=== PATIENT | female | born 1965 | race Two or more races ===

== ENCOUNTER 2019-09-12 14:42 | Inpatient (IN) | payer MEDICAID, OTHER ==
[~2019-09-12] VITALS: Ht 165.1 cm; Wt 132.4 kg
[2019-09-12 16:04] LABS: Alanine Aminotransferase 21 U/L (13-56); Albumin 2.8 g/dL (3.4-5.0); Anion Gap 4 (5-15); Aspartate Aminotransferase 16 U/L (15-37); BUN/Creatinine Ratio 13.2; Blood Urea Nitrogen 10 mg/dL (7-18); Carbon Dioxide 24 mmol/L (21-32); Chloride 108 mmol/L (98-107); GFR African American 103 mL/min; GFR Non-African American 85 mL/min; Glucose 102 mg/dL (74-106); Potassium 4.8 mmol/L (3.5-5.1); Sodium 136 mmol/L (136-145)
[2019-09-12 16:09] LABS: Alkaline Phosphatase 94 U/L (45-117); Bilirubin, Total 0.5 mg/dL (0.2-1.0); Total Protein 5.9 g/dL (6.4-8.2)
[2019-09-12 16:19] LABS: Urine Bacteria NONE SEEN /hpf (None Seen); Urine Blood Negative /uL (Negative); Urine Specific Gravity 1.021 (1.001-1.035); Urine WBC 1 /hpf (0 - 5)
[2019-09-12 17:24] LABS: Basophils # (auto) 0.1 10 ^3/uL (0-0.2); Basophils % (auto) 1.1 % (0.0-2.0); Eosinophils # (auto) 0.1 10 ^3/uL (0-0.8); Eosinophils % (auto) 0.8 % (0.0-7.0); Hematocrit 43.9 % (36.0-46.0); Lymphocytes # (auto) 2.9 10 ^3/uL (0.4-5.4); Lymphocytes % (auto) 28.9 % (10.0-50.0); Mean Corpuscular Hemoglobin 31.4 pg (28.0-32.0); Mean Corpuscular Hgb Conc. 34.2 g/dL (32.0-36.0); Mean Corpuscular Volume 91.8 fL (80.0-100.0); Monocytes # (auto) 0.8 10 ^3/uL (0-1.3); Monocytes % (auto) 7.6 % (0.0-12.0); Neutrophils # (auto) 6.1 10 ^3/uL (1.6-8.6); Neutrophils % (auto) 61.6 % (37.0-80.0); Nucleated Red Blood Cells % 0.1 %; Platelet Count (auto) 203 10^3/uL (140-450); Red Blood Cells 4.79 10^6/uL (4.0-5.20); Red Cell Distribution Width 15.2 % (11.8-14.3)
[2019-09-12] MEDS ORDERED: METO25TA93 PO (17:55)
[2019-09-12] MEDS ORDERED: PREG50CA PO (17:55)
[2019-09-12] MEDS ORDERED: OMEP20TA PO (17:55)
[2019-09-12] MEDS ORDERED: LAMO100T44 PO (17:55)
[2019-09-12] MEDS ORDERED: BUSP15TA60 PO (17:55)
[2019-09-12] MEDS ORDERED: ALBUAER3 IN (17:55)
[2019-09-12] MEDS ORDERED: AMOX-277 PO (17:55)
[2019-09-12] MEDS ORDERED: OXYB5SYP4 PO (17:55)
[2019-09-12] MEDS ORDERED: ATOR40TA52 PO (17:55)
[2019-09-12] MEDS ORDERED: FLUT110A INH (17:55)
[2019-09-12] MEDS ORDERED: ASPI-231 PO (17:55)
[2019-09-12] MEDS ORDERED: DIPH2.5T73 PO (17:55)
[2019-09-12] MEDS ORDERED: LORA-622 PO (17:55)
[2019-09-12] MEDS ORDERED: ZIPR80CA8 PO (17:55)
[2019-09-12] MEDS ORDERED: METF-372 PO (17:55)
[2019-09-12] MEDS ORDERED: SERT-160 PO (17:55)
[2019-09-12] MEDS ORDERED: NITROGLYCERIN 0.4 MG SL TAB SL PRN (19:00)
[2019-09-12] MEDS ORDERED: ACETAMINOPHEN 500 MG TAB PO PRN (19:00)
[2019-09-12] MEDS ORDERED: MORPHINE SULF INJ 2 MG/ML SYRINGE 1ML IV PRN (19:00)
[2019-09-12] MEDS ORDERED: DEXTROSE (50%) 50ML SYRG IV PRN (19:00)
[2019-09-12 19:33] LABS: CRP High Sensitivity 8.14 mg/dL (< 0.3)
[2019-09-12 19:50] VITALS: BP 119/60
--- NOTE | 2019-09-12 19:50 | NUR ---
Telemetry admit from ER SUJATHA ROMO admitted to Telemetry unit. Patient oriented to CHAY ROWE, primary RN, unit, room, bed, and unit policies regarding patient care and visiting hours. Patient now on continuous telemetry monitoring, tele box # 2 and telemetry reading on arrival to unit is sinus rhythm with heart rate at 71. Patient is alert and oriented x4. Patient denies shortness of breath or chest pain at this time. Patient is complaining of pain to her neck and bilateral arms (pain scale 6/10), notified patient that she does not have any PRN pain medications ordered at this time but this RN will page and notify hospitalist, patient verbalized understanding. Patient is on 2L NC, SPO2: 97%. No signs/symptoms of distress noted or verbalized at this time. Instructed on plan of care and to call for assistance as needed, patient verbalized understanding. Bed is locked in lowest position, side rails x 2 are up, call light is within reach, and bed alarm is on.
--- NOTE | 2019-09-12 20:27 | NUR ---
Spoke with Hospitalist RE: Pain Medication Notified Dr. Amor that patient is complaining of pain to her neck and bilateral arms (pain scale 6/10). Orders received, verified, and repeated (see EMR). Will carry out orders as received.
[2019-09-12] MEDS ORDERED: OXYCODONE W/ ACETAMINOPHEN 5/325MG TABLET PO PRN (20:30)
--- NOTE | 2019-09-12 21:00 | NUR ---
Incentive Spirometer Incentive spirometer at the bedside. Educated patient on how and how often to use the incentive spirometer, patient verbalized understanding and returned demonstration. Patient was able to raise marker to 1000ml, patient tolerated well.
[2019-09-12 21:04] LABS: Urine WBC None Seen /hpf (0 - 5)
--- NOTE | 2019-09-12 21:08 | NUR ---
Urine collected and sent to lab.
[2019-09-12] MEDS: ALBUTEROL SULF HFA 90MCG INH 200DOSE IN SCH (21:17)
[2019-09-12 21:18] LABS: Urine Bacteria NONE SEEN /hpf (None Seen); Urine Blood Negative /uL (Negative); Urine Specific Gravity 1.013 (1.001-1.035)
[2019-09-12] MEDS: ACCU-CHEK COMFORT CURVE STRIP VI SCH (21:18)
[2019-09-12] MEDS: InsuLIN REG 1unit/0.01ml Soln (100units/ml) SC SCH (21:18)
--- NOTE | 2019-09-12 21:20 | NUR ---
Respiratory note: PT'S SCHEDULED MDI WAS GIVEN BY ALEXEI CARTWRIGHT AT 2116. VITALS TAKEN FROM NURSES STATION. HR 64 RR 18 93% ON ROOM AIR.
[2019-09-12] MEDS: OXYCODONE W/ ACETAMINOPHEN 5/325MG TABLET PO PRN (21:24)
--- NOTE | 2019-09-12 21:24 | NUR ---
Pain Patient is complaining of pain to her neck and bilateral arms (pain scale 6/10). Patient states her neck pain is chronic due to neck surgery. Patient has been medicated for pain (see eMAR).
--- NOTE | 2019-09-12 22:24 | NUR ---
Pain Reassessment Patient states her pain to her neck and bilateral arms is now a 5/10.
[2019-09-13] VITALS: BP 106/44
--- NOTE | 2019-09-13 00:38 | NUR ---
MRSA swab collected and sent to lab via bullet.
[2019-09-13 01:24] VITALS: BP 106/44
[2019-09-13 04:27] VITALS: BP 104/55
[2019-09-13] MEDS: OXYCODONE W/ ACETAMINOPHEN 5/325MG TABLET PO PRN ×3 (04:48→19:13)
--- NOTE | 2019-09-13 06:13 | NUR ---
EKG Performed EKG performed and placed in hard chart.
[2019-09-13] MEDS: InsuLIN REG 1unit/0.01ml Soln (100units/ml) SC SCH ×3 (06:29→16:39)
[2019-09-13] MEDS: ACCU-CHEK COMFORT CURVE STRIP VI SCH ×3 (06:29→16:38)
[2019-09-13] MEDS: ALBUTEROL SULF HFA 90MCG INH 200DOSE IN SCH ×2 (06:29→14:13)
--- NOTE | 2019-09-13 06:29 | NUR ---
Respiratory note: 2 PUFFS (180MCG) ALBUTEROL GIVEN VIA MDI WITH CHAMBER BY RN, WITH NO ADVERSE EFFECTS NOTED. SPO2 94% 1L NC, HR 58, RR 20, BS CLEAR/DIMINISHED BILATERALLY. WILL CONTINUE TO MONITOR PT. CHARTING COMPLETE FROM OUTSIDE OF ROOM.
[2019-09-13 06:34] LABS: Basophils # (auto) 0.1 10 ^3/uL (0-0.2); Basophils % (auto) 0.6 % (0.0-2.0); Eosinophils # (auto) 0.1 10 ^3/uL (0-0.8); Eosinophils % (auto) 1.6 % (0.0-7.0); Hematocrit 43.9 % (36.0-46.0); Hemoglobin 14.9 g/dL (12.2-16.2); Lymphocytes # (auto) 2.5 10 ^3/uL (0.4-5.4); Mean Corpuscular Hemoglobin 31.3 pg (28.0-32.0); Mean Corpuscular Hgb Conc. 33.9 g/dL (32.0-36.0); Mean Corpuscular Volume 92.3 fL (80.0-100.0); Monocytes # (auto) 0.9 10 ^3/uL (0-1.3); Monocytes % (auto) 11.2 % (0.0-12.0); Neutrophils # (auto) 4.5 10 ^3/uL (1.6-8.6); Neutrophils % (auto) 55.6 % (37.0-80.0); Nucleated Red Blood Cells % 0.1 %; Platelet Count (auto) 187 10^3/uL (140-450); Red Blood Cells 4.76 10^6/uL (4.0-5.20); Red Cell Distribution Width 15.1 % (11.8-14.3); White Blood Cell 8.1 10^3/uL (4.4-10.8)
[2019-09-13 06:48] LABS: Chloride 108 mmol/L (98-107); Potassium 4.3 mmol/L (3.5-5.1); Sodium 141 mmol/L (136-145)
[2019-09-13 06:57] LABS: Alanine Aminotransferase 17 U/L (13-56); Albumin 2.7 g/dL (3.4-5.0); Alkaline Phosphatase 88 U/L (45-117); Anion Gap 4 (5-15); Aspartate Aminotransferase 10 U/L (15-37); BUN/Creatinine Ratio 17.4; Bilirubin, Total 0.8 mg/dL (0.2-1.0); Blood Urea Nitrogen 12 mg/dL (7-18); Calcium 7.8 mg/dL (8.5-10.1); Carbon Dioxide 29 mmol/L (21-32); GFR African American 115 mL/min; GFR Non-African American 95 mL/min; Glucose 100 mg/dL (74-106); Total Protein 6.1 g/dL (6.4-8.2)
[2019-09-13] MEDS ORDERED: PERCOT PO (06:57)
--- NOTE | 2019-09-13 07:37 | NUR ---
Closing Shift Note Endorsed patient care to Cori LINDA.
--- NOTE | 2019-09-13 08:00 | NUR ---
OPENING SHIFT NOTE ASSUMED CARE OF PATIENT AWAKE AND ALERT. NO S/S OF DISTRESS NOTED. PATIENT IS ON 1L NC WITH AN O2 SAT OF 96% AND AFEBRILE. PATIENT IS CONCERNED THAT HER RIGHT HAND IS NUMB BUT HER RIGHT WRIST IN PAINFUL. CLAIMS SHE CANNOT USE FINE OR GROSS MOTOR SKILLS WITH THAT HAND. ENCOURAGED PATIENT TO EXPRESS HER CONCERNS TO THE MD DURING ROUNDS. PATIENT UPDATED ON POC FOR THE DAY AND ALL QUESTIONS ANSWERED. BED IS IN LOWEST, LOCKED POSITION WITH SIDE RAILS UP X2 AND CALL LIGHT WITHIN REACH. WILL CONTINUE TO MONITOR Q1H AND PRN.
--- NOTE | 2019-09-13 09:15 | NUR ---
PICC CONSULT RECEIVED CALL FROM PICC NURSE MARY BETH. PER MARY BETH "POOR IV ACCESS" IS NOT A VALID REASON FOR A PICC LINE AND SHE SEES NO OTHER REASON THE PATIENT NEEDS ONE. SHE STATES THAT SHE WILL REASSESS THE SITUATION AFTER THE PATIENT'S PENDING COVID19 RESULT COMES BACK.
--- NOTE | 2019-09-13 09:50 | NUR ---
IV ACCESS THE 22G IV IN THE PATIENT'S RIGHT UPPER CHEST INFILTRATED WHILE ATTEMPTING TO FLUSH IT SLOWLY. SITE IS SWOLLEN AND TENDER. REMOVED IV WITH CATHETER INTACT AND PRESSURE DRESSING APPLIED.
[2019-09-13] MEDS ORDERED: CHOLECALCIFEROL (VITD3) 1,000IU=25mCg TAB PO SCH (10:00)
[2019-09-13] MEDS ORDERED: ENOXAPARIN SOD 40 MG/0.4 ML SYRINGE SC SCH (10:00)
[2019-09-13] MEDS ORDERED: AZITHROMYCIN 500MG/ 250ML 250 ML IV SCH (10:00)
[2019-09-13] MEDS ORDERED: ASCORBIC ACID 1,000 MG TAB PO SCH (10:00)
[2019-09-13] MEDS ORDERED: ZINC SULFATE 220mg CAP or TAB PO SCH (10:00)
[2019-09-13 13:00] VITALS: BP 110/64
--- NOTE | 2019-09-13 16:26 | NUR ---
Assessment Patient is a 54-year old female who is alert and oriented. Prior to admission patient lived at [facility] ) under [facility] ) Patient informed me she has a wheelchair for home use. Patient can care for her own ADLs. Patient will return home to her prior living arrangements post discharge. Patient informed me she would like to resume service with [facility]. Patient will need an order to resume hospice. Informed ALEXEI Infante regarding order to resume hospice. Informed Patient she has the right to participate in all discharge planning. Patient verbalized understanding and agrees to discharge plan. Faxed clinical information to [facility] ). Placed called to АЛЕКСАНДР Evans with [facility]. Per АЛЕКСАНДР Evans order was received and they will resume service for patient upon discharge. Transportation has been arrange with [facility]:( [phone]) via wheelchair and oxygen at 18:00. Informed ALEXEI Infante. Addendum: 09/13/19 at 1628 by ANDREW ESTRADA Amended: Links added.
[2019-09-13 16:49] VITALS: BP 106/64
--- NOTE | 2019-09-13 17:18 | NUR ---
ss consult Patient needs new PCP. Arianna Valentine to see patient for PCP. Addendum: 09/13/19 at 1719 by Arianna ESTRADA Amended: Links added.
[2019-09-13] MEDS ORDERED: cefTRIAXone 1GM/50ML D5W 50 ML IV ONE (17:30)
--- NOTE | 2019-09-13 19:13 | NUR ---
Discharge instructions given as ordered. Encourage to follow up with PMD as instructed. All questions and concerns addressed. Patient verbalized understanding. Medication reconciliation form completed and copy given to patient. Home medications held in Pharmacy returned to patient, and IV removed with catheter intact, pressure dressing applied. Telemetry unit returned to ICU. PATIENT TAKEN HOME VIA FIRE HAWK AND GURNEY with all personal belongings . No distress noted at time of departure.
[2019-09-14] MEDS ORDERED: cefTRIAXone 1GM/50ML D5W 50 ML IV SCH (09:00)
[2019-09-14] MEDS ORDERED: AZITHROMYCIN 250 MG TAB PO SCH (10:00)
== END 2019-09-13 19:15 | disposition hospice, home (50) | DRG 139 ==
LOC: ER 14:42 → TELE-EAST 14:43 → TELE-CENTR 09-13 12:07
PROVIDERS: ADMIT Nurse Practitioner Acute Care; ATTEND Internal Medicine
DX: J18.9 Pneumonia, unspecified organism (principal); E44.0 Moderate protein-calorie malnutrition; E66.2 Morbid (severe) obesity with alveolar hypoventilation; F20.0 Paranoid schizophrenia; Z68.42 Body mass index [BMI] 45.0-49.9, adult; I10 Essential (primary) hypertension; E78.5 Hyperlipidemia, unspecified; J44.0 Chronic obstructive pulmonary disease with (acute) lower respiratory infection; N39.0 Urinary tract infection, site not specified; E11.9 Type 2 diabetes mellitus without complications; F17.210 Nicotine dependence, cigarettes, uncomplicated; Z51.5 Encounter for palliative care; Z79.4 Long term (current) use of insulin; Z79.51 Long term (current) use of inhaled steroids; Z79.82 Long term (current) use of aspirin; Z79.84 Long term (current) use of oral hypoglycemic drugs; Z03.818 Encounter for observation for suspected exposure to other biological agents ruled out; Z91.041 Radiographic dye allergy status
CPT/HCPCS: 36415; 71045; 80053; 81001; 82728; 82962; 83036; 83605; 83615; 83880; 84484; 85025; 85379; 86141; 87040; 87070; 87081; 87804; 87880; 94640; G0378

== ENCOUNTER 2019-10-14 11:56 | Inpatient (IN) | payer MEDICAID ==
[2019-10-14] VITALS (37 sets, daily range): BP systolic 82–130; BP diastolic 40–64
[~2019-10-14] VITALS: Ht 177.8 cm; Wt 142.1 kg
[~2019-10-14 11:56] MED LIST: ALBUAER3 IN; ASPI-231 PO; ATOR40TA52 PO; BUSP15TA60 PO; DIPH2.5T73 PO; FLUT110A INH; LAMO100T44 PO; LORA-622 PO; METF-372 PO; METO25TA93 PO; OMEP20TA PO; OXYB5SYP4 PO; PERCOT PO; PREG50CA PO; SERT-160 PO
[2019-10-14] MEDS ORDERED: DOPamine 1600mCg/ml 400MG/250ml NSorD5 KIT/BAG IV ONE (11:57)
[2019-10-14] MEDS ORDERED: ATROPINE SULF 1 MG/10ml SYR IV ONE ×2 (11:57→13:15)
[2019-10-14] MEDS ORDERED: ETOMIDATE (2MG/ML) 20ML VIAL IV ONE ×2 (12:15→12:19)
[2019-10-14] MEDS ORDERED: SUCCINYLCHOLINE CHLORIDE 20 MG/ML 10ML VIAL IV ONE ×2 (12:15→12:20)
--- NOTE | 2019-10-14 12:29 | NUR ---
PT INTUBATED BY EMT STUDENT ON FIRST ATTEMPT GUIDED BY DR ORR. PT WITH SIZE 8.0 ETT SECURED AT 23CM LIP, SECURED WITH HOLISTER. POSITIVE PLACEMENT CONFIRMED WITH ETCO2 COLOR CHANGE. PLACED ON VENT V21 PLUGGED INTO RED OUTLET. BREATH SOUNDS BILATERAL DIMINISHED. SUCTIONED FOR LARGE THICK TENACIOUS PALE YELLOW, SPUTUM SAMPLE SENT TO LAB. ALARMS SET AND AUDIBLE. ABG TO FOLLOW. WILL CONTINUE TO MONITOR.
[2019-10-14] MEDS ORDERED: NALOXONE HCL 1MG/ML 2ML SYRINGE ONE (12:52)
[2019-10-14 13:10] LABS: Basophils # (auto) 0.1 10 ^3/uL (0-0.2); Basophils % (auto) 0.7 % (0.0-2.0); Eosinophils # (auto) 0 10 ^3/uL (0-0.8); Eosinophils % (auto) 0.1 % (0.0-7.0); Hematocrit 45.9 % (36.0-46.0); Hemoglobin 15.1 g/dL (12.2-16.2); Lymphocytes # (auto) 1.1 10 ^3/uL (0.4-5.4); Lymphocytes % (auto) 13.1 % (10.0-50.0); Mean Corpuscular Hemoglobin 30.7 pg (28.0-32.0); Mean Corpuscular Hgb Conc. 32.9 g/dL (32.0-36.0); Mean Corpuscular Volume 93.3 fL (80.0-100.0); Monocytes # (auto) 0.3 10 ^3/uL (0-1.3); Monocytes % (auto) 3.5 % (0.0-12.0); Neutrophils # (auto) 6.6 10 ^3/uL (1.6-8.6); Neutrophils % (auto) 82.6 % (37.0-80.0); Platelet Count (auto) 205 10^3/uL (140-450); Red Blood Cells 4.92 10^6/uL (4.0-5.20); Red Cell Distribution Width 15.2 % (11.8-14.3)
[2019-10-14] MEDS ORDERED: NALOXONE HCL 1MG/ML 2ML SYRINGE IV ONE (13:15)
[2019-10-14] MEDS ORDERED: DOPamine 1600MCG/ML D5W 250 ML IV ONE (13:15)
[2019-10-14 13:55] LABS: INR 0.97 (0.9-1.15); Partial Thromboplastin Time 29.9 sec (23.64-32.05)
--- NOTE | 2019-10-14 14:35 | NUR ---
RT Transport Note: PT RETURNED FROM CT TRANSPORT BACK TO ER BED 6. Patient transported on boiler operators supervisor with alarms set and audible, ambu-bag/mask connected to 02 tank. Patient returned to room with no adverse reaction noted. Placed back on ventilator on previous settings. Transport completed without incident.
[2019-10-14] MEDS ORDERED: cefTRIAXone 1GM/50ML D5W 50 ML IV ONE (15:30)
[2019-10-14] MEDS ORDERED: AZITHROMYCIN 500MG/ 250ML 250 ML IV ONE (15:30)
[2019-10-14 15:35] LABS: Urine Bacteria NONE SEEN /hpf (None Seen); Urine Blood Negative /uL (Negative); Urine Hyaline Cast FEW /lpf (0 - 2); Urine Specific Gravity 1.009 (1.001-1.035); Urine WBC <1 /hpf (0 - 5)
[2019-10-14] MEDS ORDERED: MORPHINE SULF INJ 2 MG/ML SYRINGE 1ML IV PRN (15:45)
[2019-10-14] MEDS ORDERED: NITROGLYCERIN 0.4 MG SL TAB SL PRN (15:45)
[2019-10-14 15:48] LABS: Alcohol, Urine < 3.0 mg/dL (0-10); Amphetamine Screen, Urine NEGATIVE (NEGATIVE); Barbiturate Scree,Urine NEGATIVE (NEGATIVE); Benzodiazephine Screen, Urine POSITIVE (NEGATIVE); Cannabinoid Screen, Urine NEGATIVE (NEGATIVE); Cocaine Screen, Urine NEGATIVE (NEGATIVE); Opiate Scree,Urine NEGATIVE (NEGATIVE); Phencyclidine Screen, Urine NEGATIVE (NEGATIVE)
[2019-10-14 15:52] LABS: Albumin 3.4 g/dL (3.4-5.0); Anion Gap 6 (5-15); Blood Alcohol < 3.0 mg/dL (0-5); Blood Urea Nitrogen 14 mg/dL (7-18); Calcium 7.8 mg/dL (8.5-10.1); Carbon Dioxide 21 mmol/L (21-32); Chloride 109 mmol/L (98-107); Glucose 159 mg/dL (74-106); Magnesium 1.9 mg/dL (1.6-2.6); Sodium 136 mmol/L (136-145)
[2019-10-14 15:58] LABS: Alanine Aminotransferase 36 U/L (13-56); Alkaline Phosphatase 101 U/L (45-117); Aspartate Aminotransferase 92 U/L (15-37); BUN/Creatinine Ratio 11.9; Bilirubin, Total 0.4 mg/dL (0.2-1.0); GFR African American 62 mL/min; GFR Non-African American 51 mL/min; Total Protein 6.9 g/dL (6.4-8.2)
[2019-10-14 16:02] LABS: Potassium 5.7 mmol/L (3.5-5.1)
[2019-10-14 16:15] LABS: CRP High Sensitivity 0.44 mg/dL (< 0.3)
--- NOTE | 2019-10-14 16:25 | NUR ---
Admit to ICU from ER on vent SUJATHA ROMO admitted to ICU via gurney on hall monitor, intubated and being bagged by Respiratory Therapist. Patient transfered to bed, connected to mechanical ventilator by therapist, ADDIS at bedside. Patient connected to ICU monitoring, weighed by bedscale. NOTE: R/O COVID, IN 105 NEGATIVE AIRFLOW RM.
[2019-10-14] MEDS ORDERED: InsuLIN REG 1unit/0.01ml Soln (100units/ml) IV ONE (16:30)
[2019-10-14] MEDS ORDERED: SODIUM BICARBONATE 8.4% INJ 50ML SYRINGE IV ONE (16:30)
[2019-10-14] MEDS ORDERED: DEXTROSE (50%) 50ML SYRG IV ONE (16:30)
[2019-10-14] MEDS ORDERED: PROMETHAZINE HCL 25 MG/ML 1ML IV PRN (16:30)
[2019-10-14] MEDS ORDERED: DEXTROSE (50%) 50ML SYRG IV PRN (16:30)
[2019-10-14] MEDS ORDERED: SODIUM ZIRCONIUM CYCL 10 GM PAK GT ONE (16:30)
[2019-10-14] MEDS ORDERED: ALBUTEROL SULF 2.5 MG/0.5ML(0.5%) NEB SOLN NEB ONE (16:30)
[2019-10-14] MEDS ORDERED: FUROSEMIDE 40 MG/4 ML VIAL IV ONE (16:30)
--- NOTE | 2019-10-14 16:56 | NUR ---
RT Transport Note: Patient transported to ICU bed 107. Patient transported on manager cardiac cath with alarms set and audible, ambu-bag/mask connected to 02 tank. Placed pt on ventilator on previous ordered settings. Transport completed without incident.
[2019-10-14 17:49] LABS: INR 0.97 (0.9-1.15); Partial Thromboplastin Time 30.2 sec (23.64-32.05)
[2019-10-14] MEDS: InsuLIN REG 1unit/0.01ml Soln (100units/ml) SC SCH (18:00)
[2019-10-14] MEDS: ACCU-CHEK COMFORT CURVE STRIP VI SCH (18:13)
[2019-10-14] MEDS: MIDAZOLAM DRIP 50 mg/50mL 50 ML IV SCH ×2 (18:30→21:00)
--- NOTE | 2019-10-14 19:20 | NUR ---
Opening Note Received report from john lua. patient intubated and tolerating ventilator. Isolation for rule out covid, awaiting results, negative pressure room, following hospital policy for covid 19. SR 60's on bedside patient monitor with sbp in 100's, on dopamine 20 for support. right ij tlc cdi, patent and transfusing all medications. right ngt clamped, auscultated and aspirated for proper placement. Irizarry to gravity, patent. right aka. for more information see interventions. for gtts and their titrations see iv spread sheet. bed locked and in lowest position. all fall and safety precautions in place. repositioned for comfort.
[2019-10-14 19:26] LABS: BUN/Creatinine Ratio 12.2; Calcium 7.7 mg/dL (8.5-10.1); Potassium 4.1 mmol/L (3.5-5.1)
--- NOTE | 2019-10-14 19:51 | NUR ---
RECEIVED CALL FROM CAREGIVER DEBEADER ANA GAVE CORRECT PASSWORD. UPDATED ON PATIENT CONDITION. CALL BACK NUMBER [phone]. DEBEADER STATES PATIENT LIVES WITH HER IN [facility].
[2019-10-14] MEDS: SODIUM CHLORIDE 0.9% 1,000 ML IV SCH (21:59)
[2019-10-14] MEDS ORDERED: ALBUTEROL SULF HFA 90MCG INH 200DOSE IN SCH (22:00)
[2019-10-14] MEDS: CLINDAMYCIN 600MG IV 50 ML IV SCH (22:00)
[2019-10-14] MEDS: DOPamine 3200MCG/ML 250 ML IV SCH (22:00)
[2019-10-14] MEDS: ALBUTEROL SULF 2.5 MG/0.5ML(0.5%) NEB SOLN NEB SCH (22:13)
[2019-10-15] VITALS (102 sets, daily range): BP systolic 89–144; BP diastolic 44–87
[2019-10-15] MEDS: ACCU-CHEK COMFORT CURVE STRIP VI SCH ×4 (01:00→17:36)
[2019-10-15] MEDS: InsuLIN REG 1unit/0.01ml Soln (100units/ml) SC SCH ×4 (01:06→17:36)
--- NOTE | 2019-10-15 04:20 | NUR ---
Called family for covid results updated family on patient being negative for covid19
[2019-10-15] MEDS: SODIUM CHLORIDE 0.9% 1,000 ML IV SCH ×2 (04:45→14:03)
[2019-10-15 04:52] LABS: Basophils # (auto) 0.1 10 ^3/uL (0-0.2); Eosinophils # (auto) 0.1 10 ^3/uL (0-0.8); Eosinophils % (auto) 0.7 % (0.0-7.0); Hematocrit 44.8 % (36.0-46.0); Hemoglobin 15.1 g/dL (12.2-16.2); Lymphocytes # (auto) 2.4 10 ^3/uL (0.4-5.4); Mean Corpuscular Hemoglobin 30.6 pg (28.0-32.0); Mean Corpuscular Hgb Conc. 33.8 g/dL (32.0-36.0); Mean Corpuscular Volume 90.6 fL (80.0-100.0); Monocytes # (auto) 0.9 10 ^3/uL (0-1.3); Monocytes % (auto) 8.6 % (0.0-12.0); Neutrophils # (auto) 6.6 10 ^3/uL (1.6-8.6); Neutrophils % (auto) 65.7 % (37.0-80.0); Platelet Count (auto) 217 10^3/uL (140-450); Red Blood Cells 4.95 10^6/uL (4.0-5.20); Red Cell Distribution Width 14.8 % (11.8-14.3)
[2019-10-15 05:12] LABS: Albumin 3.1 g/dL (3.4-5.0); Potassium 4.1 mmol/L (3.5-5.1)
[2019-10-15 05:19] LABS: BUN/Creatinine Ratio 13.5; Bilirubin, Total 0.5 mg/dL (0.2-1.0); Calcium 7.7 mg/dL (8.5-10.1); Total Protein 6.5 g/dL (6.4-8.2)
[2019-10-15] MEDS: CLINDAMYCIN 600MG IV 50 ML IV SCH (05:44)
[2019-10-15] MEDS: ALBUTEROL SULF 2.5 MG/0.5ML(0.5%) NEB SOLN NEB SCH ×3 (06:34→23:07)
[2019-10-15] MEDS: DOPamine 3200MCG/ML 250 ML IV SCH (08:17)
[2019-10-15] MEDS: MIDAZOLAM DRIP 50 mg/50mL 50 ML IV SCH ×2 (08:17→20:35)
[2019-10-15] MEDS: PROPOFOL 100 ML IV SCH ×2 (09:02→20:34)
[2019-10-15] MEDS: levoFLOXacin 750MG 150 ML IV SCH (09:53)
[2019-10-15] MEDS: ENOXAPARIN SOD 40 MG/0.4 ML SYRINGE SC SCH ×2 (09:54→23:48)
[2019-10-15] MEDS ORDERED: ENOXAPARIN SOD 40 MG/0.4 ML SYRINGE SC SCH (10:00)
[2019-10-15] MEDS ORDERED: FUROSEMIDE 40 MG/4 ML VIAL IV SCH (10:00)
[2019-10-15] MEDS ORDERED: levoFLOXacin 500MG 100 ML IV SCH (10:00)
[2019-10-15] MEDS ORDERED: ZINC SULFATE 220mg CAP or TAB PO SCH (10:00)
--- NOTE | 2019-10-15 11:16 | NUR ---
Nutrition consult/assessment Notes please see attached link for complete assessment [employer] needs ABW 102 [id number] kcals (11-20 kcal/kgBW), Est Protein needs: 102-112 gms/day (0.8-1.0 gm/kgBW). Will continue to monitor and reassess prn. Rec: EN support with Glucerna @ 50 ml/hr per MD approval Addendum: 10/15/19 at [address] Amended: Links added.
[2019-10-15] MEDS ORDERED: SODIUM BICARBONATE 50ML VIAL 50 ML in D5W/SOD CHL 0.45% 1,000 ML IV SCH (11:45)
--- NOTE | 2019-10-15 12:00 | NUR ---
WOUND CARE NOTE: PATIENT ADMITTED TO [facility] WITH DIAGNOSIS OF ACUTE RESPIRATORY FAILURE, CURRENT DANITA SCORE IS 12. PATIENT IS INTUBATED, SEDATED. SHE IS WOUND FREE AT THIS TIME. PATIENT DOES HAVE FADING ECCHYMOTIC AREAS NOTED TO VARIOUS AREAS OF TRUNK/LIMBS. SHE HAS HEMOSIDERIN STAIN NOTED TO BLE. NO OPEN, DRAINING, WEEPING AREAS NOTED. PATIENT WOULD BENEFIT FROM: FREQUENT TURN SCHEDULE Q 2 HOURS, PRN CONDITION PERMITS, WITH PRESSURE REDISTRIBUTION USING PILLOWS/WEDGES, LOW AIRLOSS ICU BED, BID/PRN APPLICATION WITH MOISTURE BARRIER CREAM, OPTIFOAM GENTLE SACRAL DRESSING, DIETARY CONSULT,SKIN/WOUND CARE PLAN, CONTINUED MONITORING BY WOUND CARE TEAM.
--- NOTE | 2019-10-15 13:40 | NUR ---
DR. BAKER HERE TO SEE PATIENT. SEE MD NOTES AND EMR FOR ANY NEW ORDERS.
[2019-10-15] MEDS ORDERED: ACETAMINOPHEN 650 mg PER 20 mL UD NG PRN (14:00)
--- NOTE | 2019-10-15 14:17 | NUR ---
DR. WELLS HERE TO SEE PATIENT. SEE MD NOTES AND EMR FOR ANY NEW ORDERS.
--- NOTE | 2019-10-15 14:50 | NUR ---
DR. EDUARDO HERE TO SEE PATIENT. SEE MD NOTES AND EMR FOR ANY NEW ORDERS.
[2019-10-15] MEDS ORDERED: FURO1TAB31 PO (17:02)
[2019-10-15] MEDS ORDERED: POTA10TA51 PO (17:04)
--- NOTE | 2019-10-15 17:05 | NUR ---
ALL PATIENT MEDICATIONS RECONCILED WITH SISTER SHIKHA. SHIKHA UPDATED ON PATIENTS CURRENT CONDITION WELL PLAN OF CARE.
[2019-10-15] MEDS ORDERED: ZIPR80CA8 PO (17:07)
--- NOTE | 2019-10-15 18:01 | NUR ---
2D ECHO BEING DONE. SEE TEST RESULTS.
--- NOTE | 2019-10-15 19:15 | NUR ---
Opening Note Received report from john lua. patient intubated and sedated on versed, prop, tolerating ventilator. Negative covid results. SR 60's on bedside monitor and storage bin tender with sbp in 100's, on dopamine 10 for support. right ij tlc cdi, patent and transfusing all medications. right ngt clamped, auscultated and aspirated for proper placement. Irizarry to gravity, patent. right aka. for more information see interventions. for gtts and their titrations see iv spread sheet. bed locked and in lowest position. all fall and safety precautions in place. repositioned for comfort.
--- NOTE | 2019-10-15 20:30 | NUR ---
at bedside MD lan at bedside, updated on patient status, no new orders received.
--- NOTE | 2019-10-15 20:47 | NUR ---
MD Parks received new orders
[2019-10-16] VITALS (97 sets, daily range): BP systolic 113–165; BP diastolic 50–91
[2019-10-16] MEDS: InsuLIN REG 1unit/0.01ml Soln (100units/ml) SC SCH ×4 (00:22→18:00)
[2019-10-16] MEDS: ACCU-CHEK COMFORT CURVE STRIP VI SCH ×4 (00:23→18:00)
[2019-10-16] MEDS: SODIUM CHLORIDE 0.9% 1,000 ML IV SCH ×3 (00:23→21:39)
[2019-10-16] MEDS: PROPOFOL 100 ML IV SCH ×2 (00:24→09:42)
[2019-10-16 04:35] LABS: Basophils # (auto) 0.1 10 ^3/uL (0-0.2); Basophils % (auto) 0.7 % (0.0-2.0); Eosinophils # (auto) 0.2 10 ^3/uL (0-0.8); Eosinophils % (auto) 1.7 % (0.0-7.0); Hematocrit 42.2 % (36.0-46.0); Hemoglobin 14.4 g/dL (12.2-16.2); Lymphocytes # (auto) 2.3 10 ^3/uL (0.4-5.4); Lymphocytes % (auto) 21.6 % (10.0-50.0); Mean Corpuscular Hgb Conc. 34.1 g/dL (32.0-36.0); Monocytes # (auto) 0.8 10 ^3/uL (0-1.3); Neutrophils # (auto) 7.5 10 ^3/uL (1.6-8.6); Platelet Count (auto) 212 10^3/uL (140-450); Red Blood Cells 4.63 10^6/uL (4.0-5.20); White Blood Cell 10.9 10^3/uL (4.4-10.8)
[2019-10-16] MEDS: DOPamine 3200MCG/ML 250 ML IV SCH ×2 (04:49→13:28)
[2019-10-16] MEDS: MIDAZOLAM DRIP 50 mg/50mL 50 ML IV SCH (04:50)
[2019-10-16 04:59] LABS: BUN/Creatinine Ratio 12.3; Calcium 7.6 mg/dL (8.5-10.1); Potassium 3.7 mmol/L (3.5-5.1)
[2019-10-16] MEDS: ALBUTEROL SULF 2.5 MG/0.5ML(0.5%) NEB SOLN NEB SCH ×3 (06:11→22:40)
[2019-10-16 07:10] LABS: Alcohol, Urine < 3.0 mg/dL (0-10); Amphetamine Screen, Urine NEGATIVE (NEGATIVE); Barbiturate Scree,Urine NEGATIVE (NEGATIVE); Benzodiazephine Screen, Urine POSITIVE (NEGATIVE); Cannabinoid Screen, Urine NEGATIVE (NEGATIVE); Cocaine Screen, Urine NEGATIVE (NEGATIVE); Phencyclidine Screen, Urine NEGATIVE (NEGATIVE)
[2019-10-16 07:17] LABS: Opiate Scree,Urine NEGATIVE (NEGATIVE)
[2019-10-16] MEDS: cefTRIAXone 1GM/50ML D5W 50 ML IV SCH (09:10)
--- NOTE | 2019-10-16 09:15 | NUR ---
FAMILY PHONE CALL; Received phone call from patient's sister, provided update on patient condition. Informed her that plan is to attempt to wean from the ventilator today.
--- NOTE | 2019-10-16 09:40 | NUR ---
AT BEDSIDE; Dr. Urena at bedside, okay to proceed with CPAP trial.
[2019-10-16] MEDS: levoFLOXacin 750MG 150 ML IV SCH (10:29)
[2019-10-16] MEDS: ENOXAPARIN SOD 40 MG/0.4 ML SYRINGE SC SCH ×2 (10:30→21:39)
--- NOTE | 2019-10-16 12:15 | NUR ---
Cooling Measures applied. Patient currently has temp of 100.3 , cooling measures in place.
--- NOTE | 2019-10-16 15:00 | NUR ---
FAMILY PHONE CALL: Received call from patient's sister, updated on patient current condition. Informed her that plan continues to remain to perform a weaning trial when patient is more awake.
--- NOTE | 2019-10-16 16:40 | NUR ---
Patient extubated by RT Extubation order received by Dr. GOLDSTEIN , RT at bedside. Patient extubated with no problems, patient tolerated well. Patient placed on 40% cool mist mask. Sats prior to extubation 98%, following extubation 97%. Continue to monitor.
--- NOTE | 2019-10-16 16:40 | NUR ---
EXTUBATION: Patient extubated, placed on cool mist mask by RT.
--- NOTE | 2019-10-16 17:43 | NUR ---
RESPIRATORY STATUS; Informed Dr. Urena patient has mild stridor upon auscultation; orders received for racepi x 2 doses. RT paged.
[2019-10-16] MEDS ORDERED: EPINEPHrine HCL 0.5 ML NEB NEB ONE (17:45)
--- NOTE | 2019-10-16 19:30 | NUR ---
Opening Shift Note: A&Ox1-2, confusion present. Patient is very drowsy but able to answer yes and no with knodding head and follow simple commands. 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 Bed locked in lowest position, side rails up x3, call light within reach, and bed alarm on for patient safety. IV: right IJ TLC running dopamine @ 8 mcg and NS @ 100 ml/hr inserted on 10/14/19. Dressing changed related to saturation. Irizarry inserted on 10/14/19 for strict I/O. Skin intact but presents with scattered bruising. Patient was extubated today. POC discussed with patient but patient is passive and has periods of confusion. Will continue to round and reposition Q2H/prn.
--- NOTE | 2019-10-16 22:20 | NUR ---
BIPAP initiation: Informed by RT that patient RR was in the high 20s/low 30s on cooling mist mask at 10LO2. ABG done by request from Dr. rUena; shows slight respiratory acidosis. New order to initiate Bipap at 16/8; per report, patient wears CPAP at home for JUDI. Will continue to monitor respiratory status.
[2019-10-17] VITALS (35 sets, daily range): BP systolic 93–147; BP diastolic 44–78
--- NOTE | 2019-10-17 02:00 | NUR ---
Dopamine drip stopped at this time related to HR sustaining in the 70s and BP stable at 108/60. Will continue to trend vital signs.
--- NOTE | 2019-10-17 04:15 | NUR ---
Patient bathe/linen change Patient given complete CHG bath. Skin integrity assessed for any changes. Linens and gown changed. IV lines changed per protocol. Patient repositioned for comfort.
[2019-10-17 04:25] LABS: Basophils # (auto) 0.1 10 ^3/uL (0-0.2); Eosinophils # (auto) 0.2 10 ^3/uL (0-0.8); Eosinophils % (auto) 1.8 % (0.0-7.0); Hematocrit 38.2 % (36.0-46.0); Hemoglobin 12.9 g/dL (12.2-16.2); Lymphocytes # (auto) 1.3 10 ^3/uL (0.4-5.4); Lymphocytes % (auto) 13.1 % (10.0-50.0); Mean Corpuscular Hemoglobin 30.8 pg (28.0-32.0); Mean Corpuscular Hgb Conc. 33.8 g/dL (32.0-36.0); Mean Corpuscular Volume 91.2 fL (80.0-100.0); Monocytes # (auto) 0.4 10 ^3/uL (0-1.3); Monocytes % (auto) 4.4 % (0.0-12.0); Neutrophils # (auto) 7.8 10 ^3/uL (1.6-8.6); Neutrophils % (auto) 79.7 % (37.0-80.0); Nucleated Red Blood Cells % 0.1 %; Platelet Count (auto) 184 10^3/uL (140-450); Red Blood Cells 4.19 10^6/uL (4.0-5.20); Red Cell Distribution Width 14.8 % (11.8-14.3); White Blood Cell 9.8 10^3/uL (4.4-10.8)
[2019-10-17 04:44] LABS: Calcium 7.7 mg/dL (8.5-10.1); Potassium 3.7 mmol/L (3.5-5.1)
[2019-10-17 04:49] LABS: Albumin 2.4 g/dL (3.4-5.0); BUN/Creatinine Ratio 17.5; Bilirubin, Total 0.5 mg/dL (0.2-1.0); Total Protein 5.8 g/dL (6.4-8.2)
[2019-10-17] MEDS: InsuLIN REG 1unit/0.01ml Soln (100units/ml) SC SCH ×5 (06:00→23:55)
[2019-10-17] MEDS: ALBUTEROL SULF 2.5 MG/0.5ML(0.5%) NEB SOLN NEB SCH ×3 (06:05→22:37)
[2019-10-17] MEDS: ACCU-CHEK COMFORT CURVE STRIP VI SCH ×5 (06:14→23:55)
[2019-10-17] MEDS: cefTRIAXone 1GM/50ML D5W 50 ML IV SCH (08:44)
[2019-10-17] MEDS: ENOXAPARIN SOD 40 MG/0.4 ML SYRINGE SC SCH ×2 (10:27→22:00)
[2019-10-17] MEDS: levoFLOXacin 750MG 150 ML IV SCH (10:27)
--- NOTE | 2019-10-17 11:09 | NUR ---
Nutrition Followup Notes WT: 136.2 kg Pt`s successfully extubated yesterday on BIPAP when rounded this am. pt continues to be NPO with no new diet orders. Est Energy needs ABW 102 [id number] kcals (11-20 kcal/kgBW), Est Protein needs: 102-112 gms/day (0.8-1.0 gm/kgBW). Will continue to monitor and reassess prn. LABS: CA 7.7 L, ALB 2.4 L, AST/ALT 373/92 H GI: Pt had 1 BM today per RN doc. BS: 12 high risk skin intact per RN doc PES: Altered nutrition related lab values r.t current chronic medical condition aeb hyperglycemia, mild hypoalb Decreased nutrient needs r.t adiposity aeb pt`s high BMI of 40.3 kgm2 partially resolved: Impaired swallowing r/t current medical condition aeb pt`s intubated sedated with order f NPO Rec: 1) advance diet as medically feasible. 2) consider alternate nutrition support if pt NPO > 48 hrs. If EN is choice of route consider Glucerna @ 50 ml.hr per MD approval. 3) refer to CDE on DC. 4) continue current plan of care. F/u high 2-3 days
[2019-10-17] MEDS: CLINDAMYCIN 900MG IV 50 ML IV SCH (18:45)
[2019-10-17] MEDS: PANTOPRAZOLE 40 MG TAB PO SCH (19:06)
--- NOTE | 2019-10-17 19:30 | NUR ---
Opening Shift Note: A&Ox4, with a slight delay present. 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 Bed locked in lowest position, side rails up x3, call light within reach, and bed alarm on for patient safety. IV: right IJ TLC inserted on 10/14/19. Irizarry inserted on 10/14/19 for strict I/O: tea colored urine with sediment. Skin intact but presents with scattered bruising. Patient was extubated on 10/16/19. POC discussed with patient and questions answered. Will continue to round and reposition Q2H/prn.
--- NOTE | 2019-10-17 20:15 | NUR ---
Dr. Cass Mcmillan at bedside: New orders received to downgrade patient to telemetry unit; diet order: CC 1800 deirdre./cardiac after bedside swallow evaluation completed; titrate oxygen off as patient tolerates, patient does not wear oxygen at home.
--- NOTE | 2019-10-17 20:30 | NUR ---
Bedside swallow evaluation completed with water. Patient is able to swallow thin liquids within normal limits. Patient did eat x2 jellos with ease. Max assist with feeding related to severe weakness in extremities.
--- NOTE | 2019-10-17 21:31 | NUR ---
Tele Psych information inputed to Tele[employer] iQ Request. Equipment Specialist verified camera patency with patient.
--- NOTE | 2019-10-17 21:40 | NUR ---
Tele Psych Started with Physician
[2019-10-17] MEDS ORDERED: ATORVASTATIN 20 MG TAB PO SCH (22:00)
[2019-10-17] MEDS: OXYBUTYNIN CHL 5 MG TAB PO SCH (22:00)
[2019-10-17] MEDS: DOPamine 3200MCG/ML 250 ML IV SCH (22:40)
--- NOTE | 2019-10-17 23:30 | NUR ---
PATIENT TRANSFER Received patient into room 202 and bedside report from EXAM PROCTOR Rut. No distress noted during transfer, physical assessment done (see interventions) and vital signs taken (see vitals). Patient oriented to room and instructed on plan of care. Fall and safety precautions in place. Call light within reach. Will continue to round Q1hr and PRN
--- NOTE | 2019-10-17 23:38 | NUR ---
Transfer to Med/Surg: Downgrade to room 202 with ALEXEI Adler. Attempted to call next of kin, Martha: sister, but no answer; message left.
--- NOTE | 2019-10-17 23:50 | NUR ---
MD PATRICIA Paged Dr. Cass Patricia regarding patient's request for pain medication. Message left, awaiting call back.
--- NOTE | 2019-10-18 00:42 | NUR ---
MD IVY Received call from Dr. Ivy. New orders received, read back and verified. Will input and carry out
[2019-10-18] MEDS: HYDROcodone-ACET 5/325MG TAB PO PRN ×3 (01:58→17:59)
[2019-10-18] MEDS: CLINDAMYCIN 900MG IV 50 ML IV SCH ×3 (01:59→17:58)
--- NOTE | 2019-10-18 04:03 | NUR ---
Respiratory note: PT NOT ON BIPAP AT THIS TIME, PT STATES SHE IS DONE FOR TONIGHT.
[2019-10-18 05:00] VITALS: BP 103/67
[2019-10-18 05:01] LABS: Basophils # (auto) 0.1 10 ^3/uL (0-0.2); Basophils % (auto) 0.7 % (0.0-2.0); Eosinophils # (auto) 0.3 10 ^3/uL (0-0.8); Eosinophils % (auto) 2.8 % (0.0-7.0); Hematocrit 37.6 % (36.0-46.0); Hemoglobin 12.3 g/dL (12.2-16.2); Lymphocytes # (auto) 1.8 10 ^3/uL (0.4-5.4); Lymphocytes % (auto) 17.7 % (10.0-50.0); Mean Corpuscular Hemoglobin 31.1 pg (28.0-32.0); Mean Corpuscular Hgb Conc. 32.8 g/dL (32.0-36.0); Mean Corpuscular Volume 94.7 fL (80.0-100.0); Monocytes # (auto) 0.5 10 ^3/uL (0-1.3); Monocytes % (auto) 4.7 % (0.0-12.0); Neutrophils # (auto) 7.3 10 ^3/uL (1.6-8.6); Neutrophils % (auto) 74.1 % (37.0-80.0); Platelet Count (auto) 194 10^3/uL (140-450); Red Blood Cells 3.97 10^6/uL (4.0-5.20); Red Cell Distribution Width 15.2 % (11.8-14.3); White Blood Cell 9.9 10^3/uL (4.4-10.8)
[2019-10-18 05:20] LABS: Albumin 2.6 g/dL (3.4-5.0); Calcium 7.7 mg/dL (8.5-10.1); Potassium 4.2 mmol/L (3.5-5.1)
[2019-10-18 05:29] LABS: BUN/Creatinine Ratio 14.6; Bilirubin, Total 0.7 mg/dL (0.2-1.0); Total Protein 5.4 g/dL (6.4-8.2)
[2019-10-18] MEDS: InsuLIN REG 1unit/0.01ml Soln (100units/ml) SC SCH ×3 (06:00→18:00)
[2019-10-18] MEDS: ACCU-CHEK COMFORT CURVE STRIP VI SCH ×3 (06:08→18:51)
[2019-10-18] MEDS: ALBUTEROL SULF 2.5 MG/0.5ML(0.5%) NEB SOLN NEB SCH ×3 (06:10→22:26)
[2019-10-18 09:00] VITALS: BP 136/63
[2019-10-18] MEDS: levoFLOXacin 750MG 150 ML IV SCH (09:59)
[2019-10-18] MEDS: OXYBUTYNIN CHL 5 MG TAB PO SCH ×2 (09:59→22:13)
[2019-10-18] MEDS: ENOXAPARIN SOD 40 MG/0.4 ML SYRINGE SC SCH ×2 (09:59→22:14)
[2019-10-18] MEDS: PANTOPRAZOLE 40 MG TAB PO SCH (09:59)
[2019-10-18 13:00] VITALS: BP 151/90
[2019-10-18] MEDS: SODIUM CHLORIDE 0.9% 1,000 ML IV SCH ×2 (13:23→22:20)
--- NOTE | 2019-10-18 13:30 | NUR ---
Hospitalist Rounded Dr. Cass Mcmillan at bedside to see patient.
--- NOTE | 2019-10-18 15:12 | NUR ---
SWALLOW EVALUATED. PATIENT HAS NO TEETH OR DENTURES. ABLE TO FOLLOW COMMANDS. PATIENT ABLE TO TOLERATE MECHANICAL SOFT DIET TEXTURE WITH THIN LIQUIDS WITH NO OVERT SIGNS OR SYMPTOMS OF ASPIRATION. NURSING NOTIFIED.
[2019-10-18 16:04] LABS: Hepatitis A Ab IgM Negative; Hepatitis B Core IgM Negative; Hepatitis B Surface Antigen Negative (Negative)
[2019-10-18 16:05] LABS: Hepatitis C Antibody Negative (Negative)
--- NOTE | 2019-10-18 16:50 | NUR ---
assessment Patient is a 54-year old female who is alert and oriented. Prior to admission patient lived at [facility] and board [phone] and functioned with assistance of [facility]. Patient informed me she has a wheelchair and oxygen for home use. Patient will return home to her prior living arrangements post discharge and hospice will transport. Patient will need a resumption order for hospice on discharge. I Informed Patient she has the right to participate in all discharge planning. Patient verbalized understanding and agrees to discharge plan home. Addendum: 10/18/19 at 1653 by Arianna ESTRADA Amended: Links added.
[2019-10-18 17:00] VITALS: BP 158/96
--- NOTE | 2019-10-18 19:30 | NUR ---
Opening Shift Note Assumed care of patient, awake and alert. No S/S of distress/SOB or pain. Instructed on POC and to call for assist PRN, will continue to monitor for changes Q1hr and PRN. Bed in lowest locked position, safety precautions in place. Call light within reach. Signed: 10/19/19 at 0045 by MIKE RAWLS SN <Co-Signature Required> Co-Signed: 10/19/19 at 44 by Nayely Lowery RN RN
[2019-10-18 22:46] VITALS: BP 136/73
--- NOTE | 2019-10-18 23:00 | NUR ---
Respiratory note FOUND PT OFF OF HER BIPAP, PT STATED THAT SHE CAN'T SLEEP AND DIDN'T WANT TO WEAR IT ANY LONGER. PT LEFT ON ROOM AIR, SP02 96%. PT AWARE TO CALL FOR RT IF SHE WISHES TO GO BACK ON.
[2019-10-19] MEDS: HYDROcodone-ACET 5/325MG TAB PO PRN ×3 (00:06→17:45)
[2019-10-19] MEDS: ACCU-CHEK COMFORT CURVE STRIP VI SCH ×5 (00:06→23:36)
[2019-10-19] MEDS: SODIUM CHLORIDE 0.9% 1,000 ML IV SCH ×4 (02:34→21:07)
[2019-10-19] MEDS: CLINDAMYCIN 900MG IV 50 ML IV SCH ×4 (02:35→18:47)
[2019-10-19] MEDS: InsuLIN REG 1unit/0.01ml Soln (100units/ml) SC SCH ×5 (05:09→23:36)
[2019-10-19 05:59] VITALS: BP 125/80
[2019-10-19] MEDS: ALBUTEROL SULF 2.5 MG/0.5ML(0.5%) NEB SOLN NEB SCH ×3 (06:32→21:55)
[2019-10-19 06:33] LABS: Potassium 4.6 mmol/L (3.5-5.1)
--- NOTE | 2019-10-19 06:38 | NUR ---
Respiratory note: PT NOT ON BIPAP. SPO2 95% ON RA. NO S/S OF RESPIRATORY DISTRESS NOTED.
[2019-10-19 06:42] LABS: Albumin 2.6 g/dL (3.4-5.0); BUN/Creatinine Ratio 17.9; Bilirubin, Total 0.7 mg/dL (0.2-1.0); Calcium 7.9 mg/dL (8.5-10.1); Total Protein 5.6 g/dL (6.4-8.2)
[2019-10-19 07:14] LABS: Basophils # (auto) 0.1 10 ^3/uL (0-0.2); Basophils % (auto) 0.5 % (0.0-2.0); Eosinophils # (auto) 0.3 10 ^3/uL (0-0.8); Eosinophils % (auto) 2.8 % (0.0-7.0); Hematocrit 40.3 % (36.0-46.0); Hemoglobin 12.9 g/dL (12.2-16.2); Lymphocytes # (auto) 1.5 10 ^3/uL (0.4-5.4); Lymphocytes % (auto) 15.4 % (10.0-50.0); Mean Corpuscular Hemoglobin 30.9 pg (28.0-32.0); Mean Corpuscular Volume 96.6 fL (80.0-100.0); Monocytes # (auto) 0.5 10 ^3/uL (0-1.3); Monocytes % (auto) 5.7 % (0.0-12.0); Neutrophils # (auto) 7.2 10 ^3/uL (1.6-8.6); Neutrophils % (auto) 75.6 % (37.0-80.0); Nucleated Red Blood Cells % 0.1 %; Platelet Count (auto) 190 10^3/uL (140-450); Red Blood Cells 4.17 10^6/uL (4.0-5.20); Red Cell Distribution Width 15.5 % (11.8-14.3); White Blood Cell 9.5 10^3/uL (4.4-10.8)
--- NOTE | 2019-10-19 08:00 | NUR ---
Opening Shift Note Assumed care of patient, awake and alert. No S/S of distress/SOB or pain. Instructed on POC and to call for assist PRN, will continue to monitor for changes Q1hr and PRN.
--- NOTE | 2019-10-19 08:13 | NUR ---
[facility] NEPHRO CONSULT CALLED INTO EXCHANGE. SPEEDER TENDER.
[2019-10-19 09:00] VITALS: BP 133/81
[2019-10-19] MEDS: PANTOPRAZOLE 40 MG TAB PO SCH (09:34)
[2019-10-19] MEDS: ENOXAPARIN SOD 40 MG/0.4 ML SYRINGE SC SCH ×2 (09:34→21:07)
[2019-10-19] MEDS: OXYBUTYNIN CHL 5 MG TAB PO SCH ×2 (09:34→21:06)
--- NOTE | 2019-10-19 10:10 | NUR ---
Forget Patient appears to forget where she is at this time. She stated that she wants to go back to the hospital. When notified that she is still in the hospital, patient stated that she is aware but need to be transferred back to another area that she was before. Patient is alert to person and situation at this time.
[2019-10-19] MEDS ORDERED: SODIUM CHLORIDE 0.9% 1,000 ML IV ONE (12:15)
[2019-10-19 12:52] LABS: Creatinine, Urine 86 mg/dL (30.0-125.0); Sodium Urine 106 mmol/L (40-220)
[2019-10-19 13:00] VITALS: BP 132/78
--- NOTE | 2019-10-19 13:58 | NUR ---
Nutrition Followup Notes WT: 139.7 kg Pt with no teeth or dentures per swallow eval, pt diet order advanced to mechanical soft. Pt po intake is adequate per RN doc of 75% intake 10/17 and 10/18. Will continue to monitor pt po intake [employer] needs ABW 102 [id number] kcals (11-20 kcal/kgBW), Est Protein needs: 102-112 gms/day (0.8-1.0 gm/kgBW). Will continue to monitor and reassess prn. LABS: Ca 7.9L, Creat 0.39L, Alb 2.6L, ALT 467H, AST 875H GI: Pt had 1 BM 5/31per RN doc. BS: 18 mod risk skin intact per RN doc PES: Altered nutrition related lab values r.t current chronic medical condition aeb hyperglycemia, mild hypoalb Decreased nutrient needs r.t adiposity aeb pt`s high BMI of 40.3 kgm2 resolved resolved pt diet advanced to [facility] soft: Impaired swallowing r/t current medical condition aeb pt`s intubated sedated with order f NPO Rec: 1) advance diet as medically feasible. 2) refer to CDE on DC. 3) continue current plan of care. F/u mod 3-5 days
[2019-10-19 17:00] VITALS: BP 138/74
--- NOTE | 2019-10-19 20:30 | NUR ---
SISTER NOELLE PHONE CALL TRANSFERRED TO PATIENT ROOM AFTER PASSWORD CONFIRMED.
[2019-10-19 22:00] VITALS: BP 122/65
--- NOTE | 2019-10-19 22:14 | NUR ---
OPENING NOTE- NOC SHIFT PATIENT IS IN BED RESTING. BED IS LOCKED AT LOWEST. BED RAILS UP X2 AND HEAD OF BED IS UP >30 DEGREES. BEDSIDE TABLE WITHIN REACH, CALL LIGHT WITHIN REACH. PATIENT HAS FONTAINE DRAINING PROPERLY. PATIENT IS ON ROOM AIR. NO S/SX OF DISTRESS OR SOB. PATIENT DENIES PAIN AT THIS TIME. WILL CONTINUE TO MONITOR Q1H AND PRN. Addendum: 10/19/19 at 2219 by Donna Hinson RN CORRECT TIME FOR THIS NOTE IS 1900 10/19/2019
[2019-10-20] VITALS (7 sets, daily range): BP systolic 124–154; BP diastolic 69–84
--- NOTE | 2019-10-20 01:15 | NUR ---
Respiratory note: PATIENT TAKEN OFF BIPAP, DID NOT TOLERATE WELL. PT ON ROOM AIR, NO DISTRESS NOTED. SPO2 95%
[2019-10-20] MEDS: CLINDAMYCIN 900MG IV 50 ML IV SCH ×3 (02:30→17:51)
[2019-10-20] MEDS: HYDROcodone-ACET 5/325MG TAB PO PRN ×2 (02:30→18:43)
[2019-10-20] MEDS: SODIUM CHLORIDE 0.9% 1,000 ML IV SCH (05:22)
[2019-10-20] MEDS: InsuLIN REG 1unit/0.01ml Soln (100units/ml) SC SCH ×3 (06:00→17:51)
[2019-10-20] MEDS: ACCU-CHEK COMFORT CURVE STRIP VI SCH ×3 (06:14→17:51)
--- NOTE | 2019-10-20 06:50 | NUR ---
CLOSING NOTE- NOC SHIFT PATIENT IS RESTING IN BED, NO S/SX OF DISTRESS, SOB OR PAIN. WILL ENDORSE PATIENT CARE TO DAY SHIFT RN.
[2019-10-20 06:56] LABS: Basophils # (auto) 0.1 10 ^3/uL (0-0.2); Basophils % (auto) 0.6 % (0.0-2.0); Eosinophils # (auto) 0.3 10 ^3/uL (0-0.8); Eosinophils % (auto) 3.3 % (0.0-7.0); Hematocrit 36.8 % (36.0-46.0); Hemoglobin 12.3 g/dL (12.2-16.2); Lymphocytes # (auto) 1.6 10 ^3/uL (0.4-5.4); Lymphocytes % (auto) 16.6 % (10.0-50.0); Mean Corpuscular Hemoglobin 31.1 pg (28.0-32.0); Mean Corpuscular Hgb Conc. 33.5 g/dL (32.0-36.0); Mean Corpuscular Volume 92.9 fL (80.0-100.0); Monocytes # (auto) 0.6 10 ^3/uL (0-1.3); Monocytes % (auto) 6.3 % (0.0-12.0); Neutrophils # (auto) 6.9 10 ^3/uL (1.6-8.6); Neutrophils % (auto) 73.2 % (37.0-80.0); Nucleated Red Blood Cells % 0.1 %; Platelet Count (auto) 209 10^3/uL (140-450); Red Blood Cells 3.96 10^6/uL (4.0-5.20); Red Cell Distribution Width 15.3 % (11.8-14.3); White Blood Cell 9.5 10^3/uL (4.4-10.8)
[2019-10-20 07:09] LABS: Magnesium 1.7 mg/dL (1.6-2.6); Potassium 3.5 mmol/L (3.5-5.1)
[2019-10-20 07:19] LABS: Albumin 2.2 g/dL (3.4-5.0); BUN/Creatinine Ratio 22.7; Bilirubin, Total 0.4 mg/dL (0.2-1.0); Calcium 8.1 mg/dL (8.5-10.1); Phosphorus 2.9 mg/dL (2.5-4.90); Total Protein 6.1 g/dL (6.4-8.2); Uric Acid 2.6 mg/dL (2.6-6.0)
[2019-10-20] MEDS: ALBUTEROL SULF 2.5 MG/0.5ML(0.5%) NEB SOLN NEB SCH ×3 (07:34→21:45)
[2019-10-20] MEDS ORDERED: POTASSIUM CHLORIDE 20 MEQ in SODIUM CHLORIDE 0.9% 1,000 ML IV SCH (09:30)
[2019-10-20] MEDS: PANTOPRAZOLE 40 MG TAB PO SCH (11:35)
[2019-10-20] MEDS: ENOXAPARIN SOD 40 MG/0.4 ML SYRINGE SC SCH ×2 (11:35→21:34)
[2019-10-20] MEDS: OXYBUTYNIN CHL 5 MG TAB PO SCH ×2 (11:36→21:34)
[2019-10-20] MEDS ORDERED: SOD CHL 0.9%/ KCL 20MEQ 1,000 ML IV SCH (11:45)
--- NOTE | 2019-10-20 13:38 | NUR ---
VIOLETTA PERDOMO RE: DISCHARGE PLAN. WAITING CALL BACK
[2019-10-20] MEDS ORDERED: CLIN300C8 PO (18:21)
--- NOTE | 2019-10-20 18:31 | NUR ---
D/C Planning Per consult to resume service with hospice and return to [facility] ). Faxed clinical information to [facility] АЛЕКСАНДР Evans ) ). Per АЛЕКСАНДР Evans with [facility] she will contact bedside nurse with time of transportation. Informed nurse Marysol.
--- NOTE | 2019-10-20 18:41 | NUR ---
PER SSW ANDREW PATIENT WILL RESUME [facility] AT HOME. AWAITING CALL FOR TRANSPORT TIME.
--- NOTE | 2019-10-20 19:00 | NUR ---
Opening Shift Note Assumed care of patient, awake and alert. No S/S of distress/SOB or pain. Instructed on POC and to call for assist PRN, will continue to monitor for changes Q1hr and PRN. Patient in the lowest possible position with call light within reach. Patient to be discharged at midnight. Will d/c patients conway, iv, and tele per protocol.
--- NOTE | 2019-10-20 21:30 | NUR ---
MRSA swab sent to lab. Patient positive during stay, patient to go home tonight. MRSA swab per protocol.
--- NOTE | 2019-10-20 22:30 | NUR ---
IV discontinued IJ triple lumen intact taken out and intact. no immediate complications noted. Pressure held to area, no bleeding and dressing applied.
--- NOTE | 2019-10-20 22:40 | NUR ---
Tele monitor d/c Tele box #43 taken off and sent down to monitoring analyst. Patient reading SR in the 80s.
--- NOTE | 2019-10-20 23:00 | NUR ---
Conway catheter dc'd Order to discontinue conway catheter. Conway dc'd with clean technique following deflation of balloon. Patient tolerated well with no complaints of pain. Patient discharged home to hospice.
--- NOTE | 2019-10-20 23:10 | NUR ---
Patient discharged to hospice-home. [facility] service picked up patient to take home. Patient left with no complications. Patient did not have any belongings. Hospice to make patients followup appointments. Addendum: 10/21/19 at 0030 by Catie Geller RN Notified patient was positive for MRSA and Strep in the sputum.
== END 2019-10-20 23:10 | disposition home or self-care (01) | DRG 720 ==
LOC: ER 11:56 → EDBD 11:56 → OVERFLOW 11:57 → ICU WEST 16:26 → TELE-CENTR 10-17 23:06
PROVIDERS: ADMIT Internal Medicine; ATTEND Hospitalist
PROC: 5A1945Z Respiratory Ventilation, 24-96 Consecutive Hours (ICD-10-PCS; principal; 2019-10-14)
PROC: 0BH17EZ Insertion of Endotracheal Airway into Trachea, Via Natural or Artificial Opening (ICD-10-PCS; 2019-10-14)
PROC: 02HV33Z Insertion of Infusion Device into Superior Vena Cava, Percutaneous Approach (ICD-10-PCS; 2019-10-14)
PROC: 5A09357 Assistance with Respiratory Ventilation, Less than 24 Consecutive Hours, Continuous Positive Airway Pressure (ICD-10-PCS; 2019-10-16)
PROC: 5A09357 Assistance with Respiratory Ventilation, Less than 24 Consecutive Hours, Continuous Positive Airway Pressure (ICD-10-PCS; 2019-10-17)
PROC: 5A09357 Assistance with Respiratory Ventilation, Less than 24 Consecutive Hours, Continuous Positive Airway Pressure (ICD-10-PCS; 2019-10-18)
PROC: 5A09357 Assistance with Respiratory Ventilation, Less than 24 Consecutive Hours, Continuous Positive Airway Pressure (ICD-10-PCS; 2019-10-20)
DX: A41.9 Sepsis, unspecified organism (principal); J96.01 Acute respiratory failure with hypoxia; R65.21 Severe sepsis with septic shock; G93.41 Metabolic encephalopathy; J18.9 Pneumonia, unspecified organism; N17.9 Acute kidney failure, unspecified; M62.82 Rhabdomyolysis; E87.5 Hyperkalemia; E66.01 Morbid (severe) obesity due to excess calories; F20.9 Schizophrenia, unspecified; J44.9 Chronic obstructive pulmonary disease, unspecified; F41.9 Anxiety disorder, unspecified; F17.210 Nicotine dependence, cigarettes, uncomplicated; F31.9 Bipolar disorder, unspecified; F15.90 Other stimulant use, unspecified, uncomplicated; E78.5 Hyperlipidemia, unspecified; J44.0 Chronic obstructive pulmonary disease with (acute) lower respiratory infection; I25.10 Atherosclerotic heart disease of native coronary artery without angina pectoris; I10 Essential (primary) hypertension; Z88.8 Allergy status to other drugs, medicaments and biological substances; Z91.041 Radiographic dye allergy status; Z79.899 Other long term (current) drug therapy; Z79.51 Long term (current) use of inhaled steroids; Z79.84 Long term (current) use of oral hypoglycemic drugs; Z79.82 Long term (current) use of aspirin; Z90.49 Acquired absence of other specified parts of digestive tract; Z89.611 Acquired absence of right leg above knee; Z68.41 Body mass index [BMI] 40.0-44.9, adult; Z20.828 Contact with and (suspected) exposure to other viral communicable diseases
CPT/HCPCS: 31500; 36415; 36556; 36600; 51702; 70450; 71045; 71250; 74176; 80048; 80053; 80061; 80074; 80307; 80320; 80329; 81001; 82088; 82140; 82550; 82570; 82728; 82805; 82962; 83036; 83605; 83615; 83735; 83880; 84100; 84244; 84300; 84443; 84484; 84550; 85025; 85379; 85610; 85652; 85730; 86141; 87040; 87070; 87077; 87081; 87186; 87205; 87804; 87880; 92610; 93005; 93306; 93970; 94002; 94003; 94640; 94660; 96365; 96375; 97110; 97163; 97530; 99291; G0378; J0330; J0696; J1265; J1815; J1956; J2250; J2704; J3490

== ENCOUNTER 2019-10-21 21:31 | Emergency (ER) | payer MEDICAID ==
[~2019-10-21] VITALS: Ht 177.8 cm; Wt 158.8 kg
[~2019-10-21 21:31] MED LIST changes: -ALBUAER3 IN; -ASPI-231 PO; -BUSP15TA60 PO; +CLIN300C8 PO; -FLUT110A INH; -LAMO100T44 PO; -LORA-622 PO; -PERCOT PO; -PREG50CA PO; -SERT-160 PO
[2019-10-21 22:25] LABS: Hematocrit 38.3 % (36.0-46.0); Hemoglobin 12.6 g/dL (12.2-16.2); Mean Corpuscular Hemoglobin 30.8 pg (28.0-32.0); Mean Corpuscular Hgb Conc. 32.8 g/dL (32.0-36.0); Mean Corpuscular Volume 93.9 fL (80.0-100.0); Platelet Count (auto) 267 10^3/uL (140-450); Red Blood Cells 4.08 10^6/uL (4.0-5.20); Red Cell Distribution Width 15.8 % (11.8-14.3); White Blood Cell 11.2 10^3/uL (4.4-10.8)
[2019-10-21 22:28] LABS: Band Neutrophils % (manual) 0; Basophils % (manual) 0 (0.0-2.0); Blast Cells 0; Metamyelocytes % 0; Promyelocytes % 0; Reactive Lymphocytes 0
[2019-10-21 22:40] LABS: Albumin 2.4 g/dL (3.4-5.0); Calcium 8.2 mg/dL (8.5-10.1); Potassium 3.4 mmol/L (3.5-5.1)
[2019-10-21 22:45] LABS: BUN/Creatinine Ratio 37.2; Bilirubin, Total 0.5 mg/dL (0.2-1.0); Total Protein 5.9 g/dL (6.4-8.2)
[2019-10-21 22:47] LABS: Eosinophils % (manual) 4 (0-7); Lymphocytes % (manual) 22 (10.0-50.0); Monocytes % (manual) 7 (0-12); Myelocytes % 1
[2019-10-22 01:49] LABS: Amylase 10 U/L (25-115); Lipase 36 U/L (73-393)
[2019-10-22] MEDS ORDERED: lamoTRIgine 25 MG TAB PO SCH (22:00)
[2019-10-22] MEDS: SERTRALINE HCL 50 MG TAB PO SCH (22:00)
[2019-10-23] MEDS ORDERED: ONDANSETRON ODT 4 MG TAB PO ONE (04:00)
[2019-10-23] MEDS ORDERED: MORPHINE SULFATE 4 MG/ML SYR/VIAL IM ONE (04:00)
[2019-10-23] MEDS ORDERED: POTASSIUM EFFERVESENT TAB 25 MEQ PO ONE (07:00)
[2019-10-23] MEDS ORDERED: levoFLOXacin 500 MG TAB PO SCH (10:00)
[2019-10-23] MEDS: SERTRALINE HCL 50 MG TAB PO SCH (11:09)
[2019-10-23 18:45] VITALS: BP 131/64
== END 2019-10-23 18:56 | disposition home or self-care (01) ==
LOC: EDBD 21:31 → ER 21:32
DX: F32.9 Major depressive disorder, single episode, unspecified (principal); R45.851 Suicidal ideations; R07.89 Other chest pain; J44.9 Chronic obstructive pulmonary disease, unspecified; I10 Essential (primary) hypertension; E11.9 Type 2 diabetes mellitus without complications; E78.5 Hyperlipidemia, unspecified
CPT/HCPCS: 36415; 71045; 80053; 82150; 83690; 84484; 85007; 85027; 93005; 99285; J2270; Q0162